=== PATIENT | female | born 1975 | race Two or more races ===

== ENCOUNTER 2020-09-04 12:06 | Emergency (ER) | payer SELFPAY ==
[~2020-09-04] VITALS: Ht 154.9 cm; Wt 65.0 kg
--- NOTE | 2020-09-04 13:38 | NUR ---
[facility]: PT AMBULATORY TO ROOM FROM LOBBY
--- NOTE | 2020-09-04 14:02 | NUR ---
PT CAME IN CO OF BODY ACHES, FEVER, CHILLS, HOWARD, AND COUGH SINCE WEDNESDAY. PT STATES "LINNETTE JUST BEEN GETTING WORSE AND IM SO TIRED". PT RESTING IN [facility]. CONNECTED TO MONITORING EQUIPMENT
[2020-09-04 15:04] VITALS: BP 108/57
--- NOTE | 2020-09-04 15:05 | NUR ---
PT REC'VD DISCHARGE INSTRUCTION AND EDUCATION. PT STATED NO FURTHER QUESTIOS. PT PHONE FOR REGISTRATION: [phone].
--- NOTE | 2020-09-04 15:22 | NUR ---
PT AMBULATED TO DISCHARGE AREA, STEADY GAIT.
== END 2020-09-04 15:26 | disposition home or self-care (01) ==
LOC: ED 15:10
DX: J12.9 Viral pneumonia, unspecified (principal); Z20.828 Contact with and (suspected) exposure to other viral communicable diseases; R05 Cough; R06.00 Dyspnea, unspecified; I51.7 Cardiomegaly
CPT/HCPCS: 36415; 71045; 87635; 93005; 99285